=== PATIENT | female | born 2000 | race Caucasian/White ===

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

== ENCOUNTER 2018-02-19 09:45 | Inpatient (IN) | payer OTHER ==
[2018-02-19] MEDS ORDERED: Ondansetron INJ* 2 MG/ML VIAL IV ONE ×3 (10:10→17:25)
[2018-02-19] MEDS ORDERED: Morphine INJ* 4 MG/ML 1 ML SYRINGE (NEW SYRINGE VERSION) IV ONE ×2 (10:10→14:05)
[2018-02-19 10:33] LABS: ABS Basophils 0 10^3/ul (0-0.2); ABS Eosinophils 0.2 10^3/ul (0-0.6); ABS Lymphocytes 1.8 10^3/ul (1.0-4.8); ABS Monocytes 0.6 10^3/ul (0-0.8); ABS Neutrophils 3.9 10^3/ul (1.5-7.7); ABS Nucleated RBC 0 10^3/ul; Eosinophil % 2.8 % (0-6); Hematocrit 36 % (35-47); Hemoglobin 12.3 g/dl (12.0-16.0); Lymphocyte % 27.9 % (25-47); Mean Corpuscular HGB Conc 34 g/dl (31-36); Mean Corpuscular Hemoglobin 28 pg (27-31); Mean Corpuscular Volume 83 fL (80-97); Nucleated Red Blood Cells % 0.2; Platelet Count 225 10^3/ul (150-450); Red Blood Count 4.34 10^6/ul (4.00-5.40); Red Cell Distribution Width 14 % (10.5-15); White Blood Count 6.5 10^3/ul (3.5-10.8)
[2018-02-19] MEDS ORDERED: NS 0.9% 1000 ML*IV.FLUID IV ONE (10:36)
[2018-02-19 10:37] LABS: INR 0.97 (0.77-1.02)
[2018-02-19 10:55] LABS: EGFR Non-African American 131.3 (>60)
--- NOTE | 2018-02-19 12:03 | ED ---
Abdominal Pain/Female - HPI Summary HPI Summary: Patient is a 17-year-old female with a history of Crohn's disease with colon resections in 2011 and 2014 presenting to the ED with worsening diffuse abdominal pain, 10+ diarrhea episodes daily 3 weeks as well as nausea vomiting over the past 2 days. She is very tearful on exam stating this feels similar to her previous Crohn's flares. She has been well controlled with Humira over the past several years. Last CT scan was approximately 1 month ago and was read as normal. She normally has approximately 3-4 bowel movements per day and normally does not have nausea or vomiting. She continues to eat and drink okay and denies any symptoms of dehydration or infection. Denies any fevers, sweats , chills. Denies any urinary symptoms or back pain. GI specialist is in [facility]. - History of Current Complaint Chief Complaint: EDAbdPain Stated Complaint: ABD PAIN Time Seen by Provider: 02/19/18 09:58 Hx Obtained From: Patient Hx Last Menstrual Period: currently on period ?: No Onset/Duration: Sudden Onset Timing: Constant Severity Initially: Moderate Severity Currently: Severe Pain Intensity: 8 Pain Scale Used: 0-10 Numeric Location: Diffuse Radiates: No Character: Cramping Aggravating Factor(s): Nothing Alleviating Factor(s): Nothing Associated Signs and Symptoms: Positive: Diarrhea - Risk Factors Ectopic Risk Factor: Negative Ovarian Torsion Risk Factor: Negative Allergies/Adverse Reactions: Allergies Allergy/AdvReac Type Severity Reaction Status Date / Time No Known Allergies Allergy Verified 02/19/18 10:03 Home Medications: Home Medications Citalopram TAB* [CeleXA TAB*] 20 mg PO DAILY 02/19/18 [History Confirmed ] Venlafaxine EXT RELEASE CAP* [Effexor Xr CAP*] 75 mg PO DAILY 02/19/18 [History Confirmed 02/19/18] PMH/Surg Hx/FS Hx/Imm Hx Previously Healthy: Yes Endocrine/Hematology History: Denies: Hx Diabetes Cardiovascular History: Denies: Hx Hypertension Psychiatric History: Reports: Hx Depression Denies: Hx Eating Disorder - Immunization History Hx Pertussis Vaccination: No Immunizations Up to Date: Yes Infectious Disease History: No Infectious Disease History: Denies: Traveled Outside the [place] in Last 30 Days - Family History Family History: No FHx of depression. - Social History Occupation: Unemployed, Student Lives: With Family Alcohol Use: Occasionally Hx Substance Use: No Substance Use Type: Reports: None Smoking Status (MU): Never Smoked Tobacco Review of Systems Negative: Fever, Chills, Fatigue, Skin Diaphoresis Negative: Epistaxis, Dental Pain, Sore Throat Negative: Palpitations, Chest Pain Negative: Shortness Of Breath, Cough Positive: Abdominal Pain Genitourinary: Negative Positive: no symptoms reported, see HPI Negative: Arthralgia, Myalgia Skin: Negative Neurological: Negative All Other Systems Reviewed And Are Negative: Yes Physical Exam Triage Information Reviewed: Yes Vital Signs On Initial Exam: Initial Vitals Temp Pulse Resp BP Pulse Ox 99.7 F 102 20 125/88 99 02/19/18 10:01 02/19/18 10:01 02/19/18 10:01 02/19/18 10:01 02/19/18 10:01 Vital Signs Reviewed: Yes Appearance: Positive: Well-Appearing, Well-Nourished Skin: Positive: Warm, Skin Color Reflects Adequate Perfusion Head/Face: Positive: Normal Head/Face Inspection Eyes: Positive: EOMI, JL, Conjunctiva Clear Neck: Positive: Supple, No Lymphadenopathy Respiratory/Lung Sounds: Positive: Clear to Auscultation, Breath Sounds Present Cardiovascular: Positive: RRR, Pulses are Symmetrical in both Upper and Lower Extremities Abdomen Description: Positive: Nontender, Soft Bowel Sounds: Positive: Present Musculoskeletal: Positive: Normal, Strength/ROM Intact Neurological: Positive: Sensory/Motor Intact, Alert, Oriented to Person Place, Time, Speech Normal Psychiatric: Positive: Normal, Affect/Mood Appropriate AVPU Assessment: Alert Diagnostics - Vital Signs Vital Signs Temp Pulse Resp BP Pulse Ox 02/19/18 10:36 19 02/19/18 10:01 99.7 F 102 20 125/88 99 - Laboratory Lab Results: Lab Results 02/19/18 02/19/18 02/19/18 Range/Units 10:24 10:24 10:24 WBC 6.5 (3.5-10.8) 10^3/ul RBC 4.34 (4.00-5.40) 10^6/ul Hgb 12.3 (12.0-16.0) g/dl Hct 36 (35-47) % MCV 83 (80-97) fL MCH 28 (27-31) pg MCHC 34 (31-36) g/dl RDW 14 (10.5-15) % Plt Count 225 (150-450) 10^3/ul MPV 9.0 (7.4-10.4) um3 Neut % (Auto) 59.9 (38-83) % Lymph % (Auto) 27.9 (25-47) % [place] % (Auto) 8.9 H (0-7) % Eos % (Auto) 2.8 (0-6) % Baso % (Auto) 0.5 (0-2) % Absolute Neuts (auto) 3.9 (1.5-7.7) 10^3/ul Absolute Lymphs (auto) 1.8 (1.0-4.8) 10^3/ul Absolute Monos (auto) 0.6 (0-0.8) 10^3/ul Absolute Eos (auto) 0.2 (0-0.6) 10^3/ul Absolute Basos (auto) 0 (0-0.2) 10^3/ul Absolute Nucleated RBC 0 10^3/ul Nucleated RBC % 0.2 INR (Anticoag Therapy) 0.97 (0.77-1.02) Sodium 139 (135-145) mmol/L Potassium 3.8 (3.5-5.0) mmol/L Chloride 109 (101-111) mmol/L Carbon Dioxide 25 (22-32) mmol/L Anion Gap 5 (2-11) mmol/L BUN 8 (6-24) mg/dL Creatinine 0.59 (0.51-0.95) mg/dL Est GFR ( Amer) 158.9 (>60) Est GFR (Non-Af Amer) 131.3 (>60) BUN/Creatinine Ratio 13.6 (8-20) Glucose 88 (70-100) mg/dL Lactic Acid (0.5-2.0) mmol/L Calcium 8.5 L (8.6-10.3) mg/dL Magnesium 1.7 L (1.9-2.7) mg/dL Total Bilirubin 0.40 (0.2-1.0) mg/dL AST 13 (13-39) U/L ALT 11 (7-52) U/L Alkaline Phosphatase 73 (34-104) U/L C-Reactive Protein 7.82 (<8.01) mg/L Total Protein 5.8 L (6.4-8.9) g/dL Albumin 3.6 (3.2-5.2) g/dL Globulin 2.2 (2-4) g/dL Albumin/Globulin Ratio 1.6 (1-3) Lipase 12 (11.0-82.0) U/L 02/19/18 Range/Units 10:24 WBC (3.5-10.8) 10^3/ul RBC (4.00-5.40) 10^6/ul Hgb (12.0-16.0) g/dl Hct (35-47) % MCV (80-97) fL MCH (27-31) pg MCHC (31-36) g/dl RDW (10.5-15) % Plt Count (150-450) 10^3/ul MPV (7.4-10.4) um3 Neut % (Auto) (38-83) % Lymph % (Auto) (25-47) % [place] % (Auto) (0-7) % Eos % (Auto) (0-6) % Baso % (Auto) (0-2) % Absolute Neuts (auto) (1.5-7.7) 10^3/ul Absolute Lymphs (auto) (1.0-4.8) 10^3/ul Absolute Monos (auto) (0-0.8) 10^3/ul Absolute Eos (auto) (0-0.6) 10^3/ul Absolute Basos (auto) (0-0.2) 10^3/ul Absolute Nucleated RBC 10^3/ul Nucleated RBC % INR (Anticoag Therapy) (0.77-1.02) Sodium (135-145) mmol/L Potassium (3.5-5.0) mmol/L Chloride (101-111) mmol/L Carbon Dioxide (22-32) mmol/L Anion Gap (2-11) mmol/L BUN (6-24) mg/dL Creatinine (0.51-0.95) mg/dL Est GFR ( Amer) (>60) Est GFR (Non-Af Amer) (>60) BUN/Creatinine Ratio (8-20) Glucose (70-100) mg/dL Lactic Acid 0.5 (0.5-2.0) mmol/L Calcium (8.6-10.3) mg/dL Magnesium (1.9-2.7) mg/dL Total Bilirubin (0.2-1.0) mg/dL AST (13-39) U/L ALT (7-52) U/L Alkaline Phosphatase (34-104) U/L C-Reactive Protein (<8.01) mg/L Total Protein (6.4-8.9) g/dL Albumin (3.2-5.2) g/dL Globulin (2-4) g/dL Albumin/Globulin Ratio (1-3) Lipase (11.0-82.0) U/L Result Diagrams: 02/19/18 10:24 02/19/18 10:24 Lab Statement: Any lab studies that have been ordered have been reviewed, and results considered in the medical decision making process. Abdominal Pain Fem Course/Dx - Course Course Of Treatment: Patient's evaluated for a possible Crohn's flare. Labs obtained and are WNL. Patient is feeling much improved after 4 mg Zofran and 2 mg morphine. CRP and C. difficile obtained. Discussed case with Dr. Laura Lloyd. Recommended MR Enterography. This completed at 4:10pm and Dr. Laura Lloyd agrees to see patient in the ED. She is requesting admission for patient for a possible scope as well as intractable vomiting, abdominal pain. We are also awaiting an additional stool for ova, parasite, calprotectin, celiac , IgA total, TTG IgA. She is given another 4mg of zofran and 4mg morphine for continued pain and continues to be tearful. Total given in ED: 12mg zofran and 10mg morphine. Discussed case with Dr. Damon who agrees to admit for further workup. - Diagnoses Differential Diagnosis: Positive: Other - viral illness, crohns disease, parasitic infection, diarrhea, abdominal pain Provider Diagnoses: Intractable abdominal pain, Nausea and vomiting - Provider Notifications Discussed Care Of Patient With: Blayne Damon Discharge - Sign-Out/Discharge Documenting (check all that apply): Patient Departure - Discharge Plan Condition: Fair Disposition: ADMITTED TO [facility] Referrals: No Primary Care Phys,NOPCP [Primary Care Provider] - - Billing Disposition and Condition Condition: FAIR Disposition: Admitted to [facility]
[2018-02-19] MEDS ORDERED: Morphine INJ** 4 MG/ML 1 ML CARPUJECT IV ONE ×2 (13:33→17:34)
[2018-02-19] MEDS ORDERED: Morphine INJ* 4 MG/ML 1 ML SYRINGE (NEW SYRINGE VERSION) ONE (14:03)
[2018-02-19] MEDS ORDERED: Glucagon* 1 MG VIAL ONE (14:59)
[2018-02-19] MEDS ORDERED: Gadoteridol* (CONTRAST) 279.3 MG/ML 10 ML IV ONE (15:29)
--- NOTE | 2018-02-19 16:17 | RAD ---
Indication: Crohn's disease. Image sequences: Coronal T2, axial T2, fat-sat coronal T2-weighted images of the abdomen and pelvis were obtained after oral ingestion. Dynamic coronal images were obtained. There are moderately dilated loops of small bowel in the mid abdomen. Nondistended collapsed loops of bowel are noted in the left mid abdomen. No evidence of submucosal edema is noted. No definite extraluminal collections are noted definitively identified. No definite evidence of stratified enhancement is noted. No focal wall thickening is noted. There are ill-defined multiple mesenteric lymph nodes at the root of the mesentery in this patient. Multiple lymph nodes are noted measuring up to 8 mm. Possibility of mesenteric adenitis should BE considered. The urinary bladder demonstrates signal abnormality in the dependent portion with suggestion of a filling defect however this is felt to represent admixture of contrasted urine. The visualized kidneys are unremarkable. The liver and the biliary tree are grossly unremarkable. Pancreas demonstrates no mass or pancreatic duct dilatation. The uterus and ovaries are grossly unremarkable with a small amount of free fluid noted in the pelvis and follicles in both ovaries and a cyst in the left ovary measuring up to 2.0 cm. IMPRESSION: No evidence of bowel wall thickening is definitively identified. No evidence of stratified enhancement is noted. The T2-weighted sequences demonstrate filling defects in the dependent portion of the urinary bladder which is felt to represent admixture of contrast with urine. If clinically warranted ultrasound of the urinary bladder could BE performed to confirm this. Multiple mesenteric lymph nodes are noted. Possibility of mesenteric adenitis should BE considered. A trace amount of free fluid is noted in the cul-de-sac.
[2018-02-19] MEDS ORDERED: Albuterol 2.5 MG/3 ML NEB.SOL* (0.083%) INH PRN (19:54)
[2018-02-19] MEDS ORDERED: Acetaminophen TAB* 325 MG PO PRN (19:54)
[2018-02-19] MEDS ORDERED: oxyCODONE/Acetamin 5/325 MG* TAB PO PRN (19:54)
[2018-02-19] MEDS ORDERED: Al Hydrox/Mg Hydrox/Simet LIQ* 30 ML UDC PO PRN (19:54)
--- NOTE | 2018-02-19 20:49 | PN ---
Progress Note - Progress Note Date of Service: 02/19/18 Note: GASTROENTEROLOGY CONSULT Full consult note dictated - awaiting tinter photograph. 17yF with small bowel Crohn's s/p small bowel resection x 2, maintained on Humira, who presents with abdominal pain, diarrhea x 2-3 weeks, and nausea/ vomiting since . WBC and CRP are not elevated. No small bowel thickening on MRE, although multiple small mesenteric lymph nodes noted. C diff negative. Available data therefore is not supportive of Crohn's disease flare at this point. Etiology of presentation not entirely clear, although infectious etiology possible. See formal consult note for further detail and recommendations. Briefly, I do not recommend steroids at this point in the absence of clearly documented active Crohn's disease/flare. Recommend supportive care. Will follow-up stool culture and O&P. GI to see patient tomorrow and consider EGD in afternoon depending on symptoms and results of work-up. Please keep patient on clear diet for now and NPO after around 10 am. Nolvia Lawler MD
--- NOTE | 2018-02-19 21:32 | CONS ---
GASTROENTEROLOGY CONSULT: DATE OF CONSULT: 02/19/18 REASON FOR CONSULT: Diarrhea and abdominal pain in patient with Crohn's disease HISTORY OF PRESENT ILLNESS: Ms. Roy is a 17-year-old woman with history of small intestinal Crohn's disease, status post small bowel resection x2, on Humira, who presents with several weeks of abdominal pain and nausea and vomiting. Ms. Roy has been followed by a internet developer, Dr. Johnson in [place]. She tells me that she was diagnosed around 10 years ago. She underwent a small bowel resection for a small bowel stricture in 2011. 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 She does not think that she has had a flare in 3 years. She has been on Humira every other week for around 3 years. She has not required any steroids recently. She has not had any hospitalizations or other disease activity. She had a colonoscopy a year ago and was told that it was normal. It seems as though several months ago, she had some increased abdominal pain and was seen at a hospital in [place], [place]. A CT scan at that time was reportedly normal. She has 3 to 4 bowel movements at baseline and noticed that 2-1/2 to 3 weeks ago, she had started having a sudden increase in the number of stools to 10 or more a day. She describes the stools as loose and watery. She has not seen any blood. She also has endorsed some lower right abdominal discomfort during the same time. She then developed some nausea and vomiting beginning . She has vomited only a few times since onset of symptoms. The emesis is nonbloody. She had a course of antibiotics for a sinus infection about 2 weeks ago. She says that her symptoms of the diarrhea and abdominal pain preceded the antibiotics. She does not think the antibiotics made her symptoms any worse. She has lost about a pound. She denies any fevers, but feels like she has been a bit chilled lately. She denies any recent travel. She denies any sick contacts. In the ER, GI was consulted. Labs were notable including the normal white count and hematocrit. CRP within the normal range. Given her recent CT scan I asked for an MR enterography, which was performed in the ER. This study was read by Radiology as having no evidence of bowel wall thickening. There was note made of multiple mesenteric lymph nodes raising possibility of mesenteric adenitis. Trace amount of free fluid noted in the pelvic cul-de-sac. C. diff was negative. Stool culture and O&P are pending. PAST MEDICAL HISTORY: History of Crohn's disease, on Humira as detailed above, depression, anxiety. PAST SURGICAL HISTORY: Two small bowel resections as above. MEDICATIONS: Humira, citalopram, venlafaxine FAMILY HISTORY: Maternal grandmother with ulcerative colitis and paternal grandfather with colon cancer. SOCIAL HISTORY: The patient is from [place]. She goes to [employer] currently. She is a markos. She denies any significant alcohol use or drug use. She is a nonsmoker. REVIEW OF SYSTEMS: Ms. Roy reports some joint discomfort, particularly in her shoulders and hips recently. She has taken NSAIDs occasionally, but does not use them heavily. Remainder of the 10 point review of systems otherwise negative. PHYSICAL EXAM: Vital Signs: Temp 99.7, heart rate 82, blood pressure 99/66, 99% on room air. General: Tearful-appearing young woman, lying in bed during the majority of discussion, although she sits up at the edge of the bed and looks nauseous at various points. HEENT: Mucous membranes are moist. Cardiovascular: Regular rate and rhythm. Pulmonary: Lungs are clear to auscultation. Abdomen: Soft, nondistended. Mild tenderness in suprapubic area. No rebound tenderness or guarding. Extremities: Warm and well perfused. No edema. Affect: Tearful. DIAGNOSTIC STUDIES/LAB DATA: Labs reviewed. White count 6.5, hematocrit 36, platelet count 225. Creatinine 0.59, lactic acid 0.5. Liver tests are normal. Lipase is not elevated. CRP 7.82 with less than 8 being within normal. Microbiology: C. diff negative. Stool culture and O&P are pending. Studies: MR enterography performed on 02/19/18 without evidence of bowel wall thickening. No evidence of stratified enhancement noted. Multiple mesenteric lymph nodes are noted raising possibility of mesenteric adenitis. A trace amount of free fluid noted in the cul-de-sac. IMPRESSION AND RECOMMENDATIONS: Ms. Roy is a 17-year-old woman with small bowel Crohn's with a history of 2 small bowel resections and currently maintained on Humira without recent disease activity, who presents with 2 to 3 weeks of diarrhea and several days nausea and intermittent vomiting. Ms. Roy was quite tearful on today's exam and appears a bit overwhelmed. She has some abdominal tenderness in her lower, mid, and right abdomen, although the exam is relatively unimpressive. Laboratory and MR enterography are largely unremarkable except for the presence of multiple small mesenteric lymph nodes. Notably WBC and CRP are within normal ranges. C diff negative. At this point, there is no clear objective evidence to support a diagnosis of a Crohn's flare or increased disease activity. I have asked the ED to add a fecal calprotectin to her stool studies. Infectious etiology is a possible explanation , particularly given her immunocompromised status while on Humira. However, I would typically expect the patient to be feeling better at almost 3 weeks out from onset of the acute symptoms. Expanded stool studies have been requested to evaluate further. Mesenteric adenitis can cause abdominal pain, but this finding would not account for diarrhea unless it is occurring as a result of an infectious or inflammatory etiology. We will see patient tomorrow and reassess. At that time, the decision can be made regarding the utility of an upper endoscopy to rule-out upper GI disease given her nausea and vomiting have become more of an issue over the past few days. A capsule study (with patency capsule first) can also be considered as work-up going forward, although this is typically an outpatient study. This allows for visualization of small bowel more directly in order to assess for potential active Crohn's disease or other possible explanation. Additionally, SIBO can be considered as potential etiology, although this is not typically a condition with less severe symptoms. This would require breath testing vs empiric treatment with Rifaximin. - Clear diet OK (minimize lactose), NPO after 10 am in anticipation of potential EGD - Continue supportive care - Await stool culture and O&P - Celiac panel requested - Stool calprotectin requested - Please request outside records from patient's primary internet developer and outside CT abdomen/pelvis performed within past few months - Would defer steroids for now as this does not appear to be a flare of Crohn's based on available data Thank you for this consult, GI will continue to follow along. [id number]/[facility] #: [id number] [facility] SERVICESStefano
--- NOTE | 2018-02-19 21:49 | HP ---
CC: Dr. Nolvia Lawler, GI * ADMISSION HISTORY AND PHYSICAL: DATE OF ADMISSION: 02/19/18 PATIENT OF ADMITTING HOSPITALIST: Blayne Damon MD * (DICTATED BY SILVERIO MICHELLE) PRIMARY CARE PROVIDER: [facility]. ATTENDING HOSPITALIST: While the patient here is Dr. Damon. CONSULTING GI DOCTOR: Dr. Nolvia Lawler from Gastroenterology. CHIEF COMPLAINT: Abdominal pain. HISTORY OF PRESENT ILLNESS: Pricila is a 17-year-old female with a past medical history significant for Crohn's disease for which she had 2 surgeries on a separate occasions with small bowel resection who presented to the emergency room earlier today with complaints of worsening abdominal pain for the past 2 to 3 weeks. The patient has been maintained on Humira every 2 weeks and she has been taking it for approximately the past 3 years. She is originally from [facility] and has been seen by her GI doctor at [facility] most recently in the summer of 2016. Back then, she had an EGD and colonoscopy done revealing no significant findings or any flare-ups of Crohn's disease. She reports being in her usual state of health until the past 2 to 3 weeks when she started to have progressive diffuse abdominal pain with associated nausea and vomiting. She also reports associated diarrhea with average of 10 bowel movements with loose stools every day; however, denies any bright red blood per rectum or melena. She presented to the emergency room in excruciating pain and was given 4 mg of morphine and 4 mg of Zofran with some improvement of her symptoms. The patient was seen earlier by Dr. Lawler for GI consultation. An MRI of the abdomen was ordered revealing evidence of mesenteric adenitis but there was no small bowel wall thickening or any other findings suggesting acute flare-ups of Crohn' s disease. The patient also had laboratory workup revealing normal white count of 6,500 as well as chemistry panel revealing normal C-reactive protein and normal chemistry. She continued to have worsening abdominal pain for which we were asked to see the patient for further evaluation and to consider admission for observation overnight, possible endoscopy in the morning for evaluation of her Crohn's disease. The patient herself at the time of admission revealed to me that she is very comfortable. Morphine has worked good for her and Zofran also helped with nausea. She has been able to maintain p.o. fluid intake and received a liter of IV fluid bolus in the emergency room. She denied any fever , chills, recent travel, or antibiotic intake. No history of C. diff colitis, BALLET DANCER issues, or appendicitis in the past. PAST MEDICAL HISTORY: As mentioned above, significant for: 1. Crohn's disease. 2. Depression and anxiety. PAST SURGICAL HISTORY: Significant for 2 bowel resections laparoscopically assisted in the past. She also had a sinus surgery last summer while she was home on the summer break. CURRENT MEDICATIONS: Her medications at home include: 1. Humira 40 mg subcutaneous injection once every 2 weeks. 2. Celexa 20 mg p.o. daily. 3. Effexor 75 mg p.o. daily. ALLERGIES: She has no known drug allergies. SOCIAL HISTORY: The patient is a student of [employer]. She is a markos with major in Hebrew. She drinks alcohol rarely and smokes marijuana for medicinal purposes. Her surrogate decision maker is her parents who both live in [place] area and she wishes to be a full code. FAMILY HISTORY: Reviewed and noncontributory. She did have a paternal father with history of colon cancer and maternal mother, who had colitis. REVIEW OF SYSTEMS: See HPI. Otherwise, 12 points of review of systems were examined and they were essentially negative. PHYSICAL EXAMINATION GENERAL: She is a pleasant slim young female, in no acute distress or discomfort at the time of admission. VITAL SIGNS: Revealed a temperature of 98.7, pulse of 99, blood pressure 106/68 , respirations of 18 with O2 sat of 98% on room air. HEENT: Head is normocephalic, atraumatic. Sclerae anicteric. PERRLA. EOMs intact. Oropharynx is pink and moist. NECK: Supple. Trachea midline. No cervical adenopathy or thyromegaly. LUNGS: Clear to auscultation bilaterally. HEART: Regular rate and rhythm. Normal S1 and S2 without rubs, murmurs, or gallops. BACK: With normal curvature. No CVA tenderness. BREASTS: Exam deferred at this time. ABDOMEN: Soft and nondistended. There is moderate periumbilical tenderness noted on deep palpation, but there was no guarding, rigidity, or rebound tenderness. There is a small periumbilical scar noted, well healed from prior laparoscopic surgery. There was no evidence of ventral hernia. RECTAL: Exam deferred at this time. EXTREMITIES: Without cyanosis, clubbing, or edema. NEUROLOGIC: She is awake, alert, and oriented x3. Handgrip is equal bilaterally. Tongue is midline and sensation is intact throughout. LABORATORY WORKUP: CBC with white count of 6,500, hemoglobin 12.3, hematocrit of 36, and platelets of 225. Chemistry panel with sodium of 139, potassium 3.8 , chloride 109, CO2 25, BUN of 8, and creatinine of 0.59. Her LFTs within normal limits. Magnesium slightly low at 1.7. Lipase is 12. CRP is 7.8. ACCESSORY DIAGNOSTIC DATA: Abdominal MRI as mentioned above was done revealing evidence for mesenteric adenitis and there was no evidence of bowel wall thickening identified to suggest Crohn's flare-up. IMPRESSION: A 17-year-old female with past medical history significant for Crohn's disease with flare-ups for which she had 2 prior small bowel resections who presented to the emergency room with 2 to 3-week history of worsening abdominal pain with associated diarrhea for which she will be admitted for observation under hospitalist services for the followin. Abdominal pain. I touched base with Dr. Lawler from the gastroenterology department, who saw the patient in consultation. She believes that the patient could have some infectious process, could be responsible for her abdominal pain for which multiple microbiology testing and titers were ordered to rule out any evidence of C. diff colitis or any infectious gastroenteritis. Her CRP has been normal and her white count is normal as well. She does not have any bloody stools and any coverage with prednisone is not indicated at this time. We will admit her for observation, continue symptomatic management of her pain and nausea and GI will follow her up tomorrow with possible endoscopy if deemed indicated. 2. Anxiety and depression. She seems to be comfortable and cooperative this time and her mood is appropriate. 3. DVT prophylaxis. She is low risk and we will cover her with SCDs and ambulate as tolerated. 4. Code status. She wishes to be a full code. 5. Disposition. Admit to medical floor for observation, pain management, and further evaluation of abdominal pain and history of Crohn's disease. TIME SPENT: Approximately 60 minutes were spent admitting this patient for which greater than 50% of that time on taking history and performing physical exam. I went on and discussed the case with my attending who agreed to plan of care and will follow her up accordingly. SILVERIO MICHELLE [id number]/[facility] #: [id number] [facility]
[2018-02-19] MEDS: Ondansetron INJ* 2 MG/ML VIAL IV PRN (22:14)
[2018-02-20] MEDS: Morphine VIAL* 4 MG/ML VIAL (1 ml vial) IV PRN ×2 (01:03→19:52)
[2018-02-20 06:32] LABS: ABS Basophils 0 10^3/ul (0-0.2); ABS Eosinophils 0.2 10^3/ul (0-0.6); ABS Lymphocytes 2.8 10^3/ul (1.0-4.8); ABS Monocytes 0.5 10^3/ul (0-0.8); ABS Neutrophils 2.4 10^3/ul (1.5-7.7); ABS Nucleated RBC 0 10^3/ul; Eosinophil % 2.8 % (0-6); Hematocrit 31 % (35-47); Hemoglobin 10.4 g/dl (12.0-16.0); Lymphocyte % 47.6 % (25-47); Mean Corpuscular HGB Conc 34 g/dl (31-36); Mean Corpuscular Hemoglobin 28 pg (27-31); Mean Corpuscular Volume 83 fL (80-97); Mean Platelet Volume 9.5 um3 (7.4-10.4); Nucleated Red Blood Cells % 0.3; Platelet Count 208 10^3/ul (150-450); Red Blood Count 3.75 10^6/ul (4.00-5.40); Red Cell Distribution Width 14 % (10.5-15); White Blood Count 5.9 10^3/ul (3.5-10.8)
[2018-02-20 06:55] LABS: EGFR Non-African American 148.6 (>60)
[2018-02-20] MEDS: Citalopram TAB* 20 MG PO SCH (07:56)
[2018-02-20] MEDS: Venlafaxine EXT RELEASE CAP* 75 MG PO SCH (07:56)
[2018-02-20 08:11] LABS: Urine Appearance Clear; Urine Blood Negative (Negative); Urine Color Straw; Urine Ketones 1+ (Negative); Urine Protein Negative (Negative); Urine Specific Gravity 1.003 (1.010-1.030); Urine Urobilinogen Negative (Negative)
[2018-02-20] MEDS: Ondansetron INJ* 2 MG/ML VIAL IV PRN ×2 (12:15→19:52)
--- NOTE | 2018-02-20 14:39 | PN ---
Subjective Date of Service: 02/20/18 Interval History: Still complaining of RLQ abdominal pain. Says this feels similar to prior crohn 's flares (last was 2 years ago; otherwise has been well controlled on humira). +diarrhea, nonbloody. Poor appetite and +nausea. More nausea than usual for her. No fevers. +shoulder and knee achiness. No rashes Objective Active Medications: Acetaminophen (Tylenol Tab*) 650 mg PO Q4H PRN PRN Reason: FEVER/PAIN Al Hydrox/Mg Hydrox/Simethicone (Maalox Plus*) 30 ml PO Q6H PRN PRN Reason: INDIGESTION Albuterol (Ventolin 2.5 Mg/3 Ml Neb.Cielo*) 2.5 mg INH [id number] AWAKE PRN PRN Reason: sob/wheezing Citalopram Hydrobromide (Celexa Tab*) 20 mg PO DAILY [facility] Last Admin: 02/20/18 07:56 Dose: 20 mg Lactated Ringer's (Lactated Ringers 1000 Ml Bag*) 1,000 mls @ 125 mls/hr IV PER RATE [facility] Last Admin: 02/20/18 14:34 Dose: 125 mls/hr Morphine Sulfate (Morphine Vial*) 4 mg IV Q2H PRN PRN Reason: PAIN Last Admin: 02/20/18 01:03 Dose: 4 mg Ondansetron HCl (Zofran Inj*) 4 mg IV Q4H PRN PRN Reason: NAUSEA/VOMITING Last Admin: 02/20/18 12:15 Dose: 4 mg Oxycodone/Acetaminophen (Percocet 5/325 Tab*) 1 tab PO Q4H PRN PRN Reason: Pain Last Admin: 02/20/18 07:56 Dose: 1 tab Venlafaxine HCl (Effexor Xr Cap*) 75 mg PO DAILY [facility] Last Admin: 02/20/18 07:56 Dose: 75 mg Vital Signs - 8 hr 02/20/18 02/20/18 02/20/18 07:27 07:56 11:13 Temperature 97.9 F 98.1 F Pulse Rate 84 78 Respiratory 16 18 16 Rate Blood Pressure 94/54 87/50 (mmHg) O2 Sat by Pulse 100 100 Oximetry 02/20/18 02/20/18 11:46 12:25 Temperature Pulse Rate Respiratory 18 Rate Blood Pressure 110/60 (mmHg) O2 Sat by Pulse Oximetry Oxygen Devices in Use Now: None Appearance: alert, thin, pale, no distress Eyes: No Scleral Icterus Ears/Nose/Mouth/Throat: NL Teeth, Lips, Gums Neck: NL Appearance and Movements; NL JVP Respiratory: Symmetrical Chest Expansion and Respiratory Effort Cardiovascular: NL Sounds; No Murmurs; No JVD, RRR Abdominal: - - soft, tender to deep palpation in the RLQ without guarding, no rebound Lymphatic: No Cervical Adenopathy Extremities: No Edema Skin: No Rash or Ulcers Neurological: Alert and Oriented x 3 Result Diagrams: 02/20/18 05:49 02/20/18 05:49 Additional Lab and Data: Lab Results 02/19/18 02/19/18 02/19/18 Range/Units 10:24 10:24 10:24 WBC 6.5 (3.5-10.8) 10^3/ul RBC 4.34 (4.00-5.40) 10^6/ul Hgb 12.3 (12.0-16.0) g/dl Hct 36 (35-47) % MCV 83 (80-97) fL MCH 28 (27-31) pg MCHC 34 (31-36) g/dl RDW 14 (10.5-15) % Plt Count 225 (150-450) 10^3/ul MPV 9.0 (7.4-10.4) um3 Neut % (Auto) 59.9 (38-83) % Lymph % (Auto) 27.9 (25-47) % [place] % (Auto) 8.9 H (0-7) % Eos % (Auto) 2.8 (0-6) % Baso % (Auto) 0.5 (0-2) % Absolute Neuts (auto) 3.9 (1.5-7.7) 10^3/ul Absolute Lymphs (auto) 1.8 (1.0-4.8) 10^3/ul Absolute Monos (auto) 0.6 (0-0.8) 10^3/ul Absolute Eos (auto) 0.2 (0-0.6) 10^3/ul Absolute Basos (auto) 0 (0-0.2) 10^3/ul Absolute Nucleated RBC 0 10^3/ul Nucleated RBC % 0.2 INR (Anticoag Therapy) 0.97 (0.77-1.02) Sodium 139 (135-145) mmol/L Potassium 3.8 (3.5-5.0) mmol/L Chloride 109 (101-111) mmol/L Carbon Dioxide 25 (22-32) mmol/L Anion Gap 5 (2-11) mmol/L BUN 8 (6-24) mg/dL Creatinine 0.59 (0.51-0.95) mg/dL Est GFR ( Amer) 158.9 (>60) Est GFR (Non-Af Amer) 131.3 (>60) BUN/Creatinine Ratio 13.6 (8-20) Glucose 88 (70-100) mg/dL Lactic Acid (0.5-2.0) mmol/L Calcium 8.5 L (8.6-10.3) mg/dL Magnesium 1.7 L (1.9-2.7) mg/dL Total Bilirubin 0.40 (0.2-1.0) mg/dL AST 13 (13-39) U/L ALT 11 (7-52) U/L Alkaline Phosphatase 73 (34-104) U/L C-Reactive Protein 7.82 (<8.01) mg/L Total Protein 5.8 L (6.4-8.9) g/dL Albumin 3.6 (3.2-5.2) g/dL Globulin 2.2 (2-4) g/dL Albumin/Globulin Ratio 1.6 (1-3) Lipase 12 (11.0-82.0) U/L 02/19/18 Range/Units 10:24 WBC (3.5-10.8) 10^3/ul RBC (4.00-5.40) 10^6/ul Hgb (12.0-16.0) g/dl Hct (35-47) % MCV (80-97) fL MCH (27-31) pg MCHC (31-36) g/dl RDW (10.5-15) % Plt Count (150-450) 10^3/ul MPV (7.4-10.4) um3 Neut % (Auto) (38-83) % Lymph % (Auto) (25-47) % [place] % (Auto) (0-7) % Eos % (Auto) (0-6) % Baso % (Auto) (0-2) % Absolute Neuts (auto) (1.5-7.7) 10^3/ul Absolute Lymphs (auto) (1.0-4.8) 10^3/ul Absolute Monos (auto) (0-0.8) 10^3/ul Absolute Eos (auto) (0-0.6) 10^3/ul Absolute Basos (auto) (0-0.2) 10^3/ul Absolute Nucleated RBC 10^3/ul Nucleated RBC % INR (Anticoag Therapy) (0.77-1.02) Sodium (135-145) mmol/L Potassium (3.5-5.0) mmol/L Chloride (101-111) mmol/L Carbon Dioxide (22-32) mmol/L Anion Gap (2-11) mmol/L BUN (6-24) mg/dL Creatinine (0.51-0.95) mg/dL Est GFR ( Amer) (>60) Est GFR (Non-Af Amer) (>60) BUN/Creatinine Ratio (8-20) Glucose (70-100) mg/dL Lactic Acid 0.5 (0.5-2.0) mmol/L Calcium (8.6-10.3) mg/dL Magnesium (1.9-2.7) mg/dL Total Bilirubin (0.2-1.0) mg/dL AST (13-39) U/L ALT (7-52) U/L Alkaline Phosphatase (34-104) U/L C-Reactive Protein (<8.01) mg/L Total Protein (6.4-8.9) g/dL Albumin (3.2-5.2) g/dL Globulin (2-4) g/dL Albumin/Globulin Ratio (1-3) Lipase (11.0-82.0) U/L Microbiology and Other Data: Microbiology 02/20/18 10:00 Cryptosporidium/Giardia - Final Stool Neg Cryptosporidium/Giardia 02/20/18 10:00 Stool Gross Appearance - Final Stool Stool Occult Blood (TRINIDAD) - Final 02/19/18 11:40 Stool Gross Appearance - Final Stool C. difficile DNA Amplification - Final 027 Presumptive NEGATIVE Toxigenic C.diff NEGATIVE Assess/Plan/Problems-Billing Assessment: 17 year old woman with crohn's disease that has been well controlled on humira presents with abdominal pain and diarrhea. - Patient Problems (1) Abdominal pain Current Visit: Yes Status: Acute Code(s): R10.9 - UNSPECIFIED ABDOMINAL PAIN SNOMED Code(s): 71739743 Comment: most concerning for a crohn's flare appreciate GI input and re-evaluation today for possible endoscopy/colonoscopy pain control, nausea control no steroids for now so far infectious stool work up has been negative (2) Crohn's disease Current Visit: No Status: Chronic Code(s): K50.90 - CROHN'S DISEASE, UNSPECIFIED, WITHOUT COMPLICATIONS SNOMED Code(s): 36842626 Comment: q2 week humira some extra-intestinal involvement with joint pain
[2018-02-20] MEDS ORDERED: fentaNYL* 50 MCG/ML 2 ML VIAL (100 MCG VIAL) ONE (16:24)
[2018-02-20] MEDS ORDERED: Midazolam* 1 MG/ML 10 ML VIAL (10 MG) ONE (16:24)
[2018-02-20] MEDS ORDERED: diPHENhydraMINE IV* 50 MG/ML 1 ml VIAL (BENADRYL) ONE (16:26)
--- NOTE | 2018-02-20 17:27 | PN ---
Progress Note - Progress Note Date of Service: 02/20/18 Note: GI Brief EGD Note Esophagus normal Stomach: mild diffuse gastropathy, bx Duodenum: normal Recommendations Patient describes this as same as prior flare 2-3 years ago. Has TI disease s/p 2 resection in past. Will plan colon to evaluate. If negative would consider trial of xifaxan for SIBO/IBS Tyrell Bey DO 02/21/18 [id number]
[2018-02-20] MEDS ORDERED: Magnesium CITRATE* 300 ML BTL PO ONE ×2 (19:00→20:00)
[2018-02-20] MEDS ORDERED: Bisacodyl EC TAB* 5 MG PO ONE (19:00)
[2018-02-21 07:16] LABS: ABS Basophils 0 10^3/ul (0-0.2); ABS Eosinophils 0.2 10^3/ul (0-0.6); ABS Lymphocytes 2.2 10^3/ul (1.0-4.8); ABS Monocytes 0.4 10^3/ul (0-0.8); ABS Neutrophils 3.5 10^3/ul (1.5-7.7); ABS Nucleated RBC 0 10^3/ul; Eosinophil % 2.5 % (0-6); Hematocrit 34 % (35-47); Hemoglobin 11.5 g/dl (12.0-16.0); Lymphocyte % 34.3 % (25-47); Mean Corpuscular HGB Conc 34 g/dl (31-36); Mean Corpuscular Hemoglobin 29 pg (27-31); Mean Corpuscular Volume 84 fL (80-97); Mean Platelet Volume 9.4 um3 (7.4-10.4); Nucleated Red Blood Cells % 0.2; Platelet Count 247 10^3/ul (150-450); Red Blood Count 4.02 10^6/ul (4.00-5.40); Red Cell Distribution Width 14 % (10.5-15); White Blood Count 6.3 10^3/ul (3.5-10.8)
[2018-02-21 07:34] LABS: EGFR Non-African American 131.3 (>60)
[2018-02-21] MEDS: Venlafaxine EXT RELEASE CAP* 75 MG PO SCH (07:41)
[2018-02-21] MEDS: Citalopram TAB* 20 MG PO SCH (07:41)
--- NOTE | 2018-02-21 09:40 | PN ---
Subjective Date of Service: 02/21/18 Interval History: EGD showed some gastritis but no clear explanation for her symptoms. Her pain is unchanged this morning--RLQ, plus achiness in her shoulders and knees. Still having nonbloody diarrhea. Nausea is a little better but hasn't been eating and has been doing c-scope prep. No fevers. Objective Active Medications: Acetaminophen (Tylenol Tab*) 650 mg PO Q4H PRN PRN Reason: FEVER/PAIN Al Hydrox/Mg Hydrox/Simethicone (Maalox Plus*) 30 ml PO Q6H PRN PRN Reason: INDIGESTION Albuterol (Ventolin 2.5 Mg/3 Ml Neb.Cielo*) 2.5 mg INH [id number] AWAKE PRN PRN Reason: sob/wheezing Citalopram Hydrobromide (Celexa Tab*) 20 mg PO DAILY [facility] Last Admin: 02/21/18 07:41 Dose: 20 mg Lactated Ringer's (Lactated Ringers 1000 Ml Bag*) 1,000 mls @ 125 mls/hr IV PER RATE [facility] Last Admin: 02/21/18 09:18 Dose: 125 mls/hr Morphine Sulfate (Morphine Vial*) 4 mg IV Q2H PRN PRN Reason: PAIN Last Admin: 02/20/18 19:52 Dose: 4 mg Ondansetron HCl (Zofran Inj*) 4 mg IV Q4H PRN PRN Reason: NAUSEA/VOMITING Last Admin: 02/20/18 19:52 Dose: 4 mg Oxycodone/Acetaminophen (Percocet 5/325 Tab*) 1 tab PO Q4H PRN PRN Reason: Pain Last Admin: 02/20/18 07:56 Dose: 1 tab Venlafaxine HCl (Effexor Xr Cap*) 75 mg PO DAILY [facility] Last Admin: 02/21/18 07:41 Dose: 75 mg Vital Signs - 8 hr 02/21/18 02/21/18 02/21/18 03:53 07:26 07:28 Temperature 97.9 F 97.8 F Pulse Rate 76 70 75 Respiratory 17 17 Rate Blood Pressure 98/60 96/61 101/62 (mmHg) 02/21/18 08:00 Temperature Pulse Rate Respiratory 18 Rate Blood Pressure (mmHg) Oxygen Devices in Use Now: None Appearance: pale, no distress, thin Eyes: No Scleral Icterus Ears/Nose/Mouth/Throat: NL Teeth, Lips, Gums Neck: NL Appearance and Movements; NL JVP Respiratory: Symmetrical Chest Expansion and Respiratory Effort Abdominal: - - mildly tender RLQ to deep palpation, no guarding Extremities: No Edema Skin: No Rash or Ulcers Neurological: Alert and Oriented x 3 Result Diagrams: 02/21/18 06:46 02/21/18 06:46 Additional Lab and Data: Lab Results 02/19/18 02/19/18 02/19/18 Range/Units 10:24 10:24 10:24 WBC 6.5 (3.5-10.8) 10^3/ul RBC 4.34 (4.00-5.40) 10^6/ul Hgb 12.3 (12.0-16.0) g/dl Hct 36 (35-47) % MCV 83 (80-97) fL MCH 28 (27-31) pg MCHC 34 (31-36) g/dl RDW 14 (10.5-15) % Plt Count 225 (150-450) 10^3/ul MPV 9.0 (7.4-10.4) um3 Neut % (Auto) 59.9 (38-83) % Lymph % (Auto) 27.9 (25-47) % [place] % (Auto) 8.9 H (0-7) % Eos % (Auto) 2.8 (0-6) % Baso % (Auto) 0.5 (0-2) % Absolute Neuts (auto) 3.9 (1.5-7.7) 10^3/ul Absolute Lymphs (auto) 1.8 (1.0-4.8) 10^3/ul Absolute Monos (auto) 0.6 (0-0.8) 10^3/ul Absolute Eos (auto) 0.2 (0-0.6) 10^3/ul Absolute Basos (auto) 0 (0-0.2) 10^3/ul Absolute Nucleated RBC 0 10^3/ul Nucleated RBC % 0.2 INR (Anticoag Therapy) 0.97 (0.77-1.02) Sodium 139 (135-145) mmol/L Potassium 3.8 (3.5-5.0) mmol/L Chloride 109 (101-111) mmol/L Carbon Dioxide 25 (22-32) mmol/L Anion Gap 5 (2-11) mmol/L BUN 8 (6-24) mg/dL Creatinine 0.59 (0.51-0.95) mg/dL Est GFR ( Amer) 158.9 (>60) Est GFR (Non-Af Amer) 131.3 (>60) BUN/Creatinine Ratio 13.6 (8-20) Glucose 88 (70-100) mg/dL Lactic Acid (0.5-2.0) mmol/L Calcium 8.5 L (8.6-10.3) mg/dL Magnesium 1.7 L (1.9-2.7) mg/dL Total Bilirubin 0.40 (0.2-1.0) mg/dL AST 13 (13-39) U/L ALT 11 (7-52) U/L Alkaline Phosphatase 73 (34-104) U/L C-Reactive Protein 7.82 (<8.01) mg/L Total Protein 5.8 L (6.4-8.9) g/dL Albumin 3.6 (3.2-5.2) g/dL Globulin 2.2 (2-4) g/dL Albumin/Globulin Ratio 1.6 (1-3) Lipase 12 (11.0-82.0) U/L 02/19/18 Range/Units 10:24 WBC (3.5-10.8) 10^3/ul RBC (4.00-5.40) 10^6/ul Hgb (12.0-16.0) g/dl Hct (35-47) % MCV (80-97) fL MCH (27-31) pg MCHC (31-36) g/dl RDW (10.5-15) % Plt Count (150-450) 10^3/ul MPV (7.4-10.4) um3 Neut % (Auto) (38-83) % Lymph % (Auto) (25-47) % [place] % (Auto) (0-7) % Eos % (Auto) (0-6) % Baso % (Auto) (0-2) % Absolute Neuts (auto) (1.5-7.7) 10^3/ul Absolute Lymphs (auto) (1.0-4.8) 10^3/ul Absolute Monos (auto) (0-0.8) 10^3/ul Absolute Eos (auto) (0-0.6) 10^3/ul Absolute Basos (auto) (0-0.2) 10^3/ul Absolute Nucleated RBC 10^3/ul Nucleated RBC % INR (Anticoag Therapy) (0.77-1.02) Sodium (135-145) mmol/L Potassium (3.5-5.0) mmol/L Chloride (101-111) mmol/L Carbon Dioxide (22-32) mmol/L Anion Gap (2-11) mmol/L BUN (6-24) mg/dL Creatinine (0.51-0.95) mg/dL Est GFR ( Amer) (>60) Est GFR (Non-Af Amer) (>60) BUN/Creatinine Ratio (8-20) Glucose (70-100) mg/dL Lactic Acid 0.5 (0.5-2.0) mmol/L Calcium (8.6-10.3) mg/dL Magnesium (1.9-2.7) mg/dL Total Bilirubin (0.2-1.0) mg/dL AST (13-39) U/L ALT (7-52) U/L Alkaline Phosphatase (34-104) U/L C-Reactive Protein (<8.01) mg/L Total Protein (6.4-8.9) g/dL Albumin (3.2-5.2) g/dL Globulin (2-4) g/dL Albumin/Globulin Ratio (1-3) Lipase (11.0-82.0) U/L Microbiology and Other Data: Microbiology 02/20/18 10:00 Cryptosporidium/Giardia - Final Stool Neg Cryptosporidium/Giardia 02/20/18 10:00 Stool Gross Appearance - Final Stool Stool Occult Blood (TRINIDAD) - Final 02/19/18 11:40 Stool Gross Appearance - Final Stool C. difficile DNA Amplification - Final 027 Presumptive NEGATIVE Toxigenic C.diff NEGATIVE Assess/Plan/Problems-Billing Assessment: 17 year old woman with crohn's disease that has been well controlled on humira presents with abdominal pain and diarrhea. - Patient Problems (1) Abdominal pain Current Visit: Yes Status: Acute Code(s): R10.9 - UNSPECIFIED ABDOMINAL PAIN SNOMED Code(s): 79567739 Comment: most concerning for a crohn's flare but not entirely consistent with one EGD yesterday was unremarkable pain control, nausea control no steroids for now lactoferrin +, other stool studies pending (2) Crohn's disease Current Visit: No Status: Chronic Code(s): K50.90 - CROHN'S DISEASE, UNSPECIFIED, WITHOUT COMPLICATIONS SNOMED Code(s): 01843574 Comment: q2 week humira -- last was on Monday some extra-intestinal involvement with joint pain
[2018-02-21] MEDS: Morphine VIAL* 4 MG/ML VIAL (1 ml vial) IV PRN ×3 (09:49→22:51)
--- NOTE | 2018-02-21 10:29 | PRO ---
CC: Dr. Anjana Caceres; Dr. Nolvia Lawler * ESOPHAGOGASTRODUODENOSCOPY REPORT: DATE OF PROCEDURE: 02/20/18 DATE OF : 89 ADMITTING HOSPITALIST: Anjana Caceres MD INDICATIONS: Nausea, emesis, abdominal pain. MEDICATIONS GIVEN: Include: 1. 25 mg IV Benadryl. 2. 13 mg IV midazolam. 3. 125 mcg IV fentanyl. DESCRIPTION OF PROCEDURE: After the EGD procedure including risks, benefits, and alternatives with the risks not limited to perforation, surgery, missed lesions and/or were explained to the patient, written consent was then obtained. IV medication was given and a bite-block was placed between the teeth. The Olympus gastroscope was passed through the patient's mouth through the upper esophageal sphincter into the tubular esophagus. The tubular esophagus was completely normal in appearance. The GE junction was 38 cm. The scope was easily passed through the lower esophageal sphincter into the stomach. Diffuse gastropathy was noted. There were no focal lesions or ulcerations. I did biopsy her gastropathy and multiple areas to rule out an infiltrative process. Retroflexion was done. No hiatal hernia was visualized. The scope was then passed through the widely patent pylorus into the duodenal bulb, into the C-loop of the duodenum and the distal duodenum that was visualized, was normal in appearance. The scope was then withdrawn from the patient. She tolerated the procedure well, returned to the recovery room in stable condition. IMPRESSION: 1. Complete esophagogastroduodenoscopy with biopsies. 2. Diffuse gastropathy, biopsied. 3. Otherwise normal EGD. RECOMMENDATIONS: She does have mild diffuse gastropathy. I did biopsy this on the off chance that it is an infiltrative process, but appears to be more likely secondary to medication, specifically NSAIDs or other. Given that this did not provide any etiology for her current symptomatology, we will plan on colonoscopy on 02/21/18. She had intolerance to the GoLYTELY prep in the past. I will do 2 bottles magnesium citrate and 10 mg of Dulcolax tonight given that she has had frequent nausea with hopes that this low volume may be effective for her preparation. I discussed this with the patient and the mother , everybody. All questions were answered. I will follow up on the biopsies. If the colonoscopy is negative, we will consider possible trial of Xifaxan for SIBO and/or IBS. [id number]/[facility] #: [id number] [facility]
[2018-02-21] MEDS ORDERED: Midazolam* 1 MG/ML 10 ML VIAL (10 MG) ONE (11:16)
[2018-02-21] MEDS ORDERED: fentaNYL* 50 MCG/ML 2 ML VIAL (100 MCG VIAL) ONE (11:16)
--- NOTE | 2018-02-21 16:13 | PRO ---
DATE OF PROCEDURE: 02/21/2018. PROCEDURE PERFORMED: Colonoscopy with biopsy. INDICATION: History of Crohn's disease with two small bowel resections on Humira, who presents with two to three weeks of diarrhea, abdominal pain, and nausea. Initial work-up in the ER notable for normal white count and CRP. C. diff negative. MR enterography demonstrated mesenteric lymph nodes that were enlarged, but no small bowel thickening. EGD yesterday was unremarkable. MEDICATIONS GIVEN: Midazolam 12 mg IV and Fentanyl 100 mcg IV. PROCEDURE IN DETAIL: Full disclosure of risks were reviewed with the patient as detailed on the consent form. The patient was placed in a left lateral decubitus position and monitored with continuous pulse oximetry, capnography, interval blood pressure monitoring, and observation. After anorectal examination was performed, the adult colonoscope was inserted into the rectum and advanced under direct vision to the ileocolonic anastomosis and into the terminal ileum. The quality of the prep was good. A careful inspection was made as the colonoscope was withdrawn. A retroflexed view of the rectum was not performed due to rectal inflammation and discomfort. Findings and interventions are described below. FINDINGS: - The scope was carefully advanced through colon and 20 to 30 cm into the neoterminal ileum. There were multiple scattered small erosions/aphthous ulcers seen throughout the examined ileum. Biopsies obtained. - The scope was then slowly withdrawn and the ileocolonic anastomosis (at ~60 cm ) was examined. This anastomosis was notable for multiple ulcers with friability and erythema of the mucosa. There was no stricture of the anastomosis. Biopsies were obtained from this area. - The scope was then withdrawn into the right colon, transverse colon, and left colon. The mucosa in these areas was normal in appearance. Biopsies were obtained from each segment and labeled separately. - The scope was then withdrawn into the rectum. The proximal rectum was normal in appearance. From 0 to 10 cm, there were very small erosions, loss of vascular markings, and mild erythema noted. Biopsies obtained. The patient seemed to uncomfortable during the examination in this area, so retroflexion in the rectum was not performed. The scope was then withdrawn from the patient. The patient tolerated the procedure well and was recovered in the GI recovery area. IMPRESSION: 1. 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 2. Active disease at ileocolonic anastomosis with ulcers, erythema, and friability of the mucosa. Biopsied obtained. 3. Scattered erosions, loss of vascular markings, and erythema in the rectum from 0 to 10 cm. 4. The intervening colon between 10 cm and the ileocolonic anastomosis was normal in appearance. RECOMMENDATIONS: - Await pathology. - Given the patient's significant symptoms and current hospitalization, I think it is appropriate to start IV Solu-Medrol 30 mg b.i.d at this point. Hopefully she will improve quickly and be able to be transitioned to Prednisone (with subsequent taper outpatient) in next 24-48 hours. - Clear diet to start and advance to regular (or low-residue) diet once she is feeling less symptomatic. - Outpatient plan will include optimizing Humira level and ruling out antibody formation. Patient not due for Humira dose for a week or so. Therefore, we will need to check trough in outpatient setting on the morning she is due for next injection. We will arrange for follow-up in GI clinic to discuss further management of her Crohn's disease. The procedure findings and this plan were discussed with the patient and her mother as well as primary team. [id number]/[facility] #: [id number] [facility] SYSTEMStefano
[2018-02-21] MEDS: methylPREDNISolone SOD 40 MG* 1 ML VIAL IV SCH (16:23)
[2018-02-21] MEDS: Ondansetron INJ* 2 MG/ML VIAL IV PRN (16:23)
[2018-02-22] MEDS: methylPREDNISolone SOD 40 MG* 1 ML VIAL IV SCH ×2 (04:22→16:41)
[2018-02-22] MEDS: Ondansetron INJ* 2 MG/ML VIAL IV PRN ×2 (04:39→11:15)
[2018-02-22] MEDS: Morphine VIAL* 4 MG/ML VIAL (1 ml vial) IV PRN ×5 (04:39→22:20)
[2018-02-22] MEDS: Citalopram TAB* 20 MG PO SCH (08:08)
[2018-02-22] MEDS: Venlafaxine EXT RELEASE CAP* 75 MG PO SCH (08:08)
--- NOTE | 2018-02-22 17:45 | PN ---
Subjective Date of Service: 02/22/18 Interval History: Feels about the same today. Still with right lower quadrant pain. Nausea is a little better. Still having diarrhea. Wants saltines, but otherwise doens't feel like advancing diet. Mom is here. Objective Active Medications: Acetaminophen (Tylenol Tab*) 650 mg PO Q4H PRN PRN Reason: FEVER/PAIN Al Hydrox/Mg Hydrox/Simethicone (Maalox Plus*) 30 ml PO Q6H PRN PRN Reason: INDIGESTION Albuterol (Ventolin 2.5 Mg/3 Ml Neb.Cielo*) 2.5 mg INH [id number] AWAKE PRN PRN Reason: sob/wheezing Citalopram Hydrobromide (Celexa Tab*) 20 mg PO DAILY [facility] Last Admin: 02/22/18 08:08 Dose: 20 mg Methylprednisolone Sodium Succinate (Solu-Medrol 40 Mg) 40 mg IV Q12H [facility] Last Admin: 02/22/18 16:41 Dose: 40 mg Morphine Sulfate (Morphine Vial*) 4 mg IV Q2H PRN PRN Reason: PAIN Last Admin: 02/22/18 17:19 Dose: 4 mg Ondansetron HCl (Zofran Inj*) 4 mg IV Q4H PRN PRN Reason: NAUSEA/VOMITING Last Admin: 02/22/18 11:15 Dose: 4 mg Oxycodone/Acetaminophen (Percocet 5/325 Tab*) 1 tab PO Q4H PRN PRN Reason: Pain Last Admin: 02/20/18 07:56 Dose: 1 tab Venlafaxine HCl (Effexor Xr Cap*) 75 mg PO DAILY [facility] Last Admin: 02/22/18 08:08 Dose: 75 mg Vital Signs - 8 hr 02/22/18 02/22/18 02/22/18 11:56 12:02 13:00 Temperature 97.9 F Pulse Rate 71 Respiratory 16 16 Rate Blood Pressure (mmHg) O2 Sat by Pulse 100 Oximetry 02/22/18 02/22/18 02/22/18 14:52 15:25 17:19 Temperature 98.4 F 98.7 F Pulse Rate 84 77 Respiratory 14 16 Rate Blood Pressure 92/60 97/59 (mmHg) O2 Sat by Pulse 99 100 Oximetry Oxygen Devices in Use Now: None Appearance: alert, thin, pale, uncomfortable Eyes: No Scleral Icterus Ears/Nose/Mouth/Throat: NL Teeth, Lips, Gums Neck: NL Appearance and Movements; NL JVP Respiratory: Symmetrical Chest Expansion and Respiratory Effort Cardiovascular: NL Sounds; No Murmurs; No JVD Abdominal: NL Sounds; No Tenderness; No Distention, - - tender to palpation rlq Lymphatic: No Cervical Adenopathy Extremities: No Edema Skin: No Rash or Ulcers Neurological: Alert and Oriented x 3 Result Diagrams: 02/21/18 06:46 02/21/18 06:46 Additional Lab and Data: Lab Results 02/19/18 02/19/18 02/19/18 Range/Units 10:24 10:24 10:24 WBC 6.5 (3.5-10.8) 10^3/ul RBC 4.34 (4.00-5.40) 10^6/ul Hgb 12.3 (12.0-16.0) g/dl Hct 36 (35-47) % MCV 83 (80-97) fL MCH 28 (27-31) pg MCHC 34 (31-36) g/dl RDW 14 (10.5-15) % Plt Count 225 (150-450) 10^3/ul MPV 9.0 (7.4-10.4) um3 Neut % (Auto) 59.9 (38-83) % Lymph % (Auto) 27.9 (25-47) % [place] % (Auto) 8.9 H (0-7) % Eos % (Auto) 2.8 (0-6) % Baso % (Auto) 0.5 (0-2) % Absolute Neuts (auto) 3.9 (1.5-7.7) 10^3/ul Absolute Lymphs (auto) 1.8 (1.0-4.8) 10^3/ul Absolute Monos (auto) 0.6 (0-0.8) 10^3/ul Absolute Eos (auto) 0.2 (0-0.6) 10^3/ul Absolute Basos (auto) 0 (0-0.2) 10^3/ul Absolute Nucleated RBC 0 10^3/ul Nucleated RBC % 0.2 INR (Anticoag Therapy) 0.97 (0.77-1.02) Sodium 139 (135-145) mmol/L Potassium 3.8 (3.5-5.0) mmol/L Chloride 109 (101-111) mmol/L Carbon Dioxide 25 (22-32) mmol/L Anion Gap 5 (2-11) mmol/L BUN 8 (6-24) mg/dL Creatinine 0.59 (0.51-0.95) mg/dL Est GFR ( Amer) 158.9 (>60) Est GFR (Non-Af Amer) 131.3 (>60) BUN/Creatinine Ratio 13.6 (8-20) Glucose 88 (70-100) mg/dL Lactic Acid (0.5-2.0) mmol/L Calcium 8.5 L (8.6-10.3) mg/dL Magnesium 1.7 L (1.9-2.7) mg/dL Total Bilirubin 0.40 (0.2-1.0) mg/dL AST 13 (13-39) U/L ALT 11 (7-52) U/L Alkaline Phosphatase 73 (34-104) U/L C-Reactive Protein 7.82 (<8.01) mg/L Total Protein 5.8 L (6.4-8.9) g/dL Albumin 3.6 (3.2-5.2) g/dL Globulin 2.2 (2-4) g/dL Albumin/Globulin Ratio 1.6 (1-3) Lipase 12 (11.0-82.0) U/L 02/19/18 Range/Units 10:24 WBC (3.5-10.8) 10^3/ul RBC (4.00-5.40) 10^6/ul Hgb (12.0-16.0) g/dl Hct (35-47) % MCV (80-97) fL MCH (27-31) pg MCHC (31-36) g/dl RDW (10.5-15) % Plt Count (150-450) 10^3/ul MPV (7.4-10.4) um3 Neut % (Auto) (38-83) % Lymph % (Auto) (25-47) % [place] % (Auto) (0-7) % Eos % (Auto) (0-6) % Baso % (Auto) (0-2) % Absolute Neuts (auto) (1.5-7.7) 10^3/ul Absolute Lymphs (auto) (1.0-4.8) 10^3/ul Absolute Monos (auto) (0-0.8) 10^3/ul Absolute Eos (auto) (0-0.6) 10^3/ul Absolute Basos (auto) (0-0.2) 10^3/ul Absolute Nucleated RBC 10^3/ul Nucleated RBC % INR (Anticoag Therapy) (0.77-1.02) Sodium (135-145) mmol/L Potassium (3.5-5.0) mmol/L Chloride (101-111) mmol/L Carbon Dioxide (22-32) mmol/L Anion Gap (2-11) mmol/L BUN (6-24) mg/dL Creatinine (0.51-0.95) mg/dL Est GFR ( Amer) (>60) Est GFR (Non-Af Amer) (>60) BUN/Creatinine Ratio (8-20) Glucose (70-100) mg/dL Lactic Acid 0.5 (0.5-2.0) mmol/L Calcium (8.6-10.3) mg/dL Magnesium (1.9-2.7) mg/dL Total Bilirubin (0.2-1.0) mg/dL AST (13-39) U/L ALT (7-52) U/L Alkaline Phosphatase (34-104) U/L C-Reactive Protein (<8.01) mg/L Total Protein (6.4-8.9) g/dL Albumin (3.2-5.2) g/dL Globulin (2-4) g/dL Albumin/Globulin Ratio (1-3) Lipase (11.0-82.0) U/L Microbiology and Other Data: Microbiology 02/20/18 10:00 Cryptosporidium/Giardia - Final Stool Neg Cryptosporidium/Giardia 02/20/18 10:00 Stool Gross Appearance - Final Stool Stool Occult Blood (TRINIDAD) - Final 02/19/18 11:40 Stool Gross Appearance - Final Stool C. difficile DNA Amplification - Final 027 Presumptive NEGATIVE Toxigenic C.diff NEGATIVE Assess/Plan/Problems-Billing Assessment: 17 year old woman with crohn's disease that has been well controlled on humira presents with abdominal pain and diarrhea. - Patient Problems (1) Abdominal pain Current Visit: Yes Status: Acute Code(s): R10.9 - UNSPECIFIED ABDOMINAL PAIN SNOMED Code(s): 94825687 Comment: EGD was unremarkable but colonoscopy showed erosions and ulcers consistent with a crohns flare started solumedrol yesterday pain control, nausea control lactoferrin +, other stool studies pending (2) Crohn's disease Current Visit: No Status: Chronic Code(s): K50.90 - CROHN'S DISEASE, UNSPECIFIED, WITHOUT COMPLICATIONS SNOMED Code(s): 08200769 Comment: q2 week humira -- last was on Monday GI suggests outpatient work up for humira resistance/antibodies
[2018-02-23] MEDS: methylPREDNISolone SOD 40 MG* 1 ML VIAL IV SCH (04:20)
[2018-02-23] MEDS: Morphine VIAL* 4 MG/ML VIAL (1 ml vial) IV PRN ×2 (05:05→11:18)
[2018-02-23] MEDS ORDERED: predniSONE TAB* 20 MG PO ONE (08:22)
[2018-02-23] MEDS: Citalopram TAB* 20 MG PO SCH (08:58)
[2018-02-23] MEDS: Venlafaxine EXT RELEASE CAP* 75 MG PO SCH (08:58)
[2018-02-23] MEDS ORDERED: oxyCODONE TAB* 5 MG TAB PO PRN (11:01)
[2018-02-23] MEDS ORDERED: Ondansetron ODT TAB* 4 MG SL PRN (11:02)
--- NOTE | 2018-02-23 12:27 | PN ---
Progress Note - Progress Note Date of Service: 02/23/18 Note: Time spent on discharge 45 minutes, including exam of the patient, discussion with the patient, her father, the nurse, Dr. Oquendo, and review of the EMR and preparation of discharge documents.
[2018-02-23 12:30] VITALS: BP 100/58
--- NOTE | 2018-02-23 14:41 | PN ---
"Progress Note - Progress Note Date of Service: 02/23/18 Note: Search Terms: maurisio mahoney, 2000 Search Date: 02/23/2018 02:39:37 PM States Searched: [place] The Drug Utilization Report below displays the controlled substance prescriptions, if any, that were dispensed in the indicated state(s). The information displayed on this report is compiled from requests submitted to other states' PMPs, and accurately reflects the information as returned by them. Blank carty indicate data not provided by other state. This report was requested by: Ramón Cintron | Reference #: [id number] Prescriptions Dispensed in [facility] There are no results for the search terms that you entered. Search Terms: maurisio mahoney, 2000 Search Date: 02/23/2018 02:40:19 PM The Drug Utilization Report below displays all of the controlled substance prescriptions, if any, that your patient has filled in the last twelve months. The information displayed on this report is compiled from pharmacy submissions to the Department, and accurately reflects the information as submitted by the pharmacies. This report was requested by: Ramón Cintron | Reference #: [id number] There are no results for the search terms that you entered. Time spent on discharge 40 minutes, including exam of patient, discussion with patient, nurse, father, CM, review of EMR and preparation of discharge documents."
[2018-02-23] MEDS ORDERED: predniSONE TAB* 20 MG PO SCH (21:00)
--- NOTE | 2018-02-24 03:41 | DS ---
CC: MD Bucky DISCHARGE SUMMARY: DATE OF ADMISSION: DATE OF DISCHARGE: 02/23/18 HOSPITAL COURSE: This 17-year-old woman was admitted with abdominal pain. She has a long history of Crohn disease. She has had surgery twice including ileal resection. She has been followed by a waste removalist in [facility]. She has been taking Humira every 2 weeks, took it last 02/18/18. About 2 or 3 weeks ago, she began having diffuse abdominal pain, nausea, vomiting and diarrhea up to 10 bowel movements a day. No bleeding or melena. The pain became quite severe and she was admitted for control of her symptoms and diagnostic testing. She was seen in consultation by Dr. aLwler. She had colonoscopy on . She also had an endoscopy. The gastric biopsies were unremarkable. Biopsy results on multiple sites in the rectum, small intestine and colon are pending at this time. On colonoscopy, there was active neoterminal ileitis with scattered multiple erosions. There was active disease at the ileal colonic anastomosis with erythema and friability of the mucosa. There were scattered erosions and loss of vascular markings and erythema in the rectum between and 0 and 10 cm. The patient was treated with intravenous steroids, analgesics and fluids. She improved significantly and felt she was well enough to go home on the day of discharge. Her father is going to accompany home. She is going to return to school and follow up with both Dr. Lawler and her waste removalist in [facility]. She will be evaluated for resistance to Humira as an outpatient. FINAL DIAGNOSIS: Crohn disease. DISCHARGE MEDICATIONS: 1. Ondansetron ODT 4 mg sublingual every 6 hours p.r.n. 2. Oxycodone 5-10 mg every 4 hours p.r.n. 3. Prednisone 20 mg 2 tablets twice daily. DISCHARGE CONDITION: improved DISCHARGE DISPOSITION: home [id number]/[facility] #: [id number] [facility]
== END 2018-02-23 13:20 | disposition home or self-care (01) | DRG 387 ==
LOC: ED 09:45 → MED 19:54 → OBSVTOIN 02-20 16:25
PROVIDERS: ADMIT Internal Medicine; ATTEND Internal Medicine
PROC: 0DB68ZX Excision of Stomach, Via Natural or Artificial Opening Endoscopic, Diagnostic (ICD-10-PCS; 2018-02-20)
PROC: 0DBB8ZX Excision of Ileum, Via Natural or Artificial Opening Endoscopic, Diagnostic (ICD-10-PCS; principal; 2018-02-21)
PROC: 0DBL8ZX Excision of Transverse Colon, Via Natural or Artificial Opening Endoscopic, Diagnostic (ICD-10-PCS; 2018-02-21)
PROC: 0DBP8ZX Excision of Rectum, Via Natural or Artificial Opening Endoscopic, Diagnostic (ICD-10-PCS; 2018-02-21)
PROC: 0DBF8ZX Excision of Right Large Intestine, Via Natural or Artificial Opening Endoscopic, Diagnostic (ICD-10-PCS; 2018-02-21)
PROC: 0DBG8ZX Excision of Left Large Intestine, Via Natural or Artificial Opening Endoscopic, Diagnostic (ICD-10-PCS; 2018-02-21)
DX: K50.00 Crohn's disease of small intestine without complications (principal); K29.70 Gastritis, unspecified, without bleeding; K31.9 Disease of stomach and duodenum, unspecified; F32.9 Major depressive disorder, single episode, unspecified; F41.9 Anxiety disorder, unspecified; Z80.0 Family history of malignant neoplasm of digestive organs; Z83.79 Family history of other diseases of the digestive system; Z79.52 Long term (current) use of systemic steroids; Z72.89 Other problems related to lifestyle; Z23 Encounter for immunization
CPT/HCPCS: 36415; 74183; 80048; 80053; 81003; 82270; 82656; 82784; 83516; 83605; 83630; 83690; 83735; 83993; 85025; 85610; 86140; 87045; 87046; 87077; 87177; 87209; 87328; 87329; 87493; 87899; 88305; 88342; 90686; 99156; 99157; 99284; A9270-GY; A9579; G0378; J1200; J1610; J2250; J2270; J2405; J2920; J3010; J7512